=== PATIENT | female | born 1970 | race Caucasian/White ===

== ENCOUNTER 2022-01-19 13:45 | Emergency (ER) | payer BC ==
[~2022-01-19] VITALS: Ht 160 cm; Wt 113.6 kg
[2022-01-19 15:02] VITALS: BP 116/83
== END 2022-01-19 15:05 | disposition home or self-care (01) ==
LOC: ER 13:45
DX: I80.3 Phlebitis and thrombophlebitis of lower extremities, unspecified (principal); Z88.2 Allergy status to sulfonamides; Z88.0 Allergy status to penicillin
CPT/HCPCS: 99284

== ENCOUNTER 2024-07-05 17:03 | Inpatient (IN) | payer BC ==
[~2024-07-05] VITALS: Ht 160 cm; Wt 205.0 kg
[2024-07-05 17:52] LABS: BASOPHILS % (AUTO) 0.3 % (0-1); EOSINOPHILS % (AUTO) 0.5 % (0-6); HEMATOCRIT 40.9 % (35.0-45.0); HEMOGLOBIN 13.8 g/dl (12.0-16.0); LYMPHOCYTES # (AUTO) 2.6 X10'3 (1.1-4.8); LYMPHOCYTES % (AUTO) 33.8 % (21-51); MEAN CORPUSCULAR HEMOGLOBIN 32.1 PG (27.0-31.0); MEAN CORPUSCULAR HGB CONC 33.7 g/dL (33.0-36.5); MEAN CORPUSCULAR VOLUME 95.4 FL (78-98); MEAN PLATELET VOLUME 8.2 FL (7.4-10.4); MONOCYTES % (AUTO) 13.8 % (2-12); NEUTROPHILS # (AUTO) 3.9 X10'3 (1.8-7.7); NEUTROPHILS % (AUTO) 51.6 % (42-75); PLATELET COUNT 593 X10'3 (140-440); RED BLOOD COUNT 4.29 X10'6 (4.20-5.60); RED CELL DISTRIBUTION WIDTH 13.9 % (11.5-14.5); WHITE BLOOD COUNT 7.6 X10'3 (4.5-11.0)
[2024-07-05 17:57] LABS: ALBUMIN 3.9 G/DL (3.4-5.0); ANION GAP 9 (8-16); BLOOD UREA NITROGEN 22 MG/DL (7-18); BUN/CREATININE RATIO 24.2 (10.0-20.0); CHLORIDE 102 MMOL/L (99-107); CREATININE 0.91 MG/DL (0.40-0.90); GLUCOSE 122 MG/DL (70-104); SODIUM 139 MMOL/L (135-145); TOTAL CARBON DIOXIDE 28.4 MMOL/L (24-32); eCRCL 61 ML/MIN; eGFR 65 ML/MIN
[2024-07-05 17:58] LABS: APTT 28 SECONDS (22-32); INR 1.1 INR
[2024-07-05] MEDS ORDERED: iohexol 350MG/ML 100ml bottle IV ONE (18:00)
[2024-07-05] MEDS: aspirin 325mg tablet PO ONE (18:16)
[2024-07-05] MEDS: dexamethasone 4mg/ml inj IV ONE (21:16)
[2024-07-05] MEDS: valproate sod inj 500 MG in normal saline 50ml IV soln 50 ML IV ONE (21:16)
[2024-07-05] MEDS: magnesium sulf-water 2g/50mL 50 ML IV ONE (22:46)
[2024-07-06] MEDS ORDERED: potassium Cl 40MEQ/1/2NS 520ml 520 ML IV PRN (01:25)
[2024-07-06] MEDS ORDERED: potassium Cl 20 mEq SR tablet PO PRN ×2 (01:25)
[2024-07-06] MEDS ORDERED: magnesium Cl slow-release 64mg tablet PO PRN (01:25)
[2024-07-06] MEDS ORDERED: ondansetron/PF 4mg/2ml inj IV PRN (01:25)
[2024-07-06] MEDS ORDERED: acetaminophen 325mg tablet PO PRN ×2 (01:25)
[2024-07-06] MEDS ORDERED: magnesium sulf-water 4G/100mL 100 ML IV PRN (01:25)
[2024-07-06] MEDS ORDERED: magnesium sulf-water 2g/50mL 50 ML IV PRN (01:25)
[2024-07-06] MEDS ORDERED: magnesium hydroxide 30ml (MOM) UD suspension PO PRN (01:25)
[2024-07-06] MEDS ORDERED: mag hydrox/Alum hydrox/simeth 30ml oral suspension PO PRN (01:25)
[2024-07-06 02:30] VITALS: RESP 18; TEMP 98.5
[2024-07-06 03:21] LABS: MAGNESIUM 2.5 MG/DL (1.5-2.4); POTASSIUM 4.5 MMOL/L (3.5-5.1)
[2024-07-06 06:18] VITALS: BP 105/66; PULSE 62; O2SAT 97
[2024-07-06] MEDS ORDERED: METO-384 PO (07:32)
[2024-07-06] MEDS ORDERED: BUPR300T53 PO (07:32)
[2024-07-06] MEDS: K and/or MAG REPLACEMENT MC SCH (08:00)
[2024-07-06] MEDS: normal saline 1000ml 1,000 ML IV SCH (09:25)
[2024-07-06] MEDS: docusate sod 100mg capsule PO SCH (09:27)
== END 2024-07-06 17:20 | disposition home or self-care (01) | DRG 103 ==
LOC: ER 17:03 → ED HOLD 07-06 01:29 → EDBEDREQ 07-06 09:54 → PCU 3S 07-06 11:10
PROVIDERS: ADMIT Internal Medicine Critical Care Medicine; ATTEND Internal Medicine
PROC: B3251ZZ Computerized Tomography (CT Scan) of Bilateral Common Carotid Arteries using Low Osmolar Contrast (ICD-10-PCS; principal; 2024-07-05)
PROC: B32R1ZZ Computerized Tomography (CT Scan) of Intracranial Arteries using Low Osmolar Contrast (ICD-10-PCS; 2024-07-05)
PROC: B3281ZZ Computerized Tomography (CT Scan) of Bilateral Internal Carotid Arteries using Low Osmolar Contrast (ICD-10-PCS; 2024-07-05)
DX: G43.109 Migraine with aura, not intractable, without status migrainosus (principal); I10 Essential (primary) hypertension
CPT/HCPCS: 36415; 70450; 70496; 70498; 70551; 71045; 80048; 82948; 83036; 83735; 84132; 85025; 85610; 85730; 87081; 93005; 93306; 93880; 99285; G0378; J1100; J3490; J7030; Q9967

== ENCOUNTER 2025-04-17 10:10 | Emergency (ER) | payer BC ==
[~2025-04-17] VITALS: Ht 160 cm; Wt 110.4 kg
[~2025-04-17 10:10] MED LIST: BUPR300T53 PO; METO-384 PO
[2025-04-17 10:16] VITALS: TEMP 97.8
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
[2025-04-17 11:42] VITALS: BP 113/64; PULSE 63; RESP 18; O2SAT 100
== END 2025-04-17 11:46 | disposition home or self-care (01) ==
LOC: ER 10:10
DX: J02.9 Acute pharyngitis, unspecified (principal); T59.811A Toxic effect of smoke, accidental (unintentional), initial encounter; I10 Essential (primary) hypertension; Z88.0 Allergy status to penicillin; Z88.2 Allergy status to sulfonamides; Z88.8 Allergy status to other drugs, medicaments and biological substances; Y92.89 Other specified places as the place of occurrence of the external cause
CPT/HCPCS: 71045; 99283